=== PATIENT | male | born 1945 | race Caucasian/White ===

== ENCOUNTER → 2016-08-26 | Outpatient (CLI) | payer OTHER, BC ==
[~2016-08-26] MED LIST: ADULT LOW DOSE81 M1 PO; CADUET 5/201 TABLET PO; DIOVAN HCT 3201 EAC1 PO; FINASTERIDE5 M1 PO; FLOMAX0.4 MG PO; PRILOSEC20 MG PO
== END | disposition home or self-care (01) ==
DX: M17.11 Unilateral primary osteoarthritis, right knee (principal)
CPT/HCPCS: 97110 GP; 97150 GO; 97161 GP; 97165 GO; G8978 GP; G8979 GP; G8980 GP; G8987 GO; G8988 GO; G8989 GO

== ENCOUNTER 2016-09-08 04:56 | Inpatient (IN) | payer OTHER, BC ==
[~2016-09-08] VITALS: Ht 170.2 cm; Wt 105.9 kg
[~2016-09-08 04:56] MED LIST changes: +DIOVAN HCT 11 TABLET PO; +GLUCOPHAGE500 MG PO; +MOBIC15 MG PO; +NORVASC5 MG PO
[2016-09-08 07:55] LABS: POINT-OF-CARE METER ID UU14174212
[2016-09-08 08:27] VITALS: BP 165/77
[2016-09-08 12:53] LABS: POINT-OF-CARE METER ID UU13113675; POINT-OF-CARE USER ID 515036437
[2016-09-08 14:20] VITALS: BP 148/88
[2016-09-08 14:37] LABS: INTER. NORMALIZED RATIO 1.1; PROTHROMBIN TIME 10.7 (9.2-11.2)
[2016-09-08 17:07] LABS: POINT-OF-CARE METER ID UU13113712; POINT-OF-CARE USER ID 606021404
[2016-09-08 19:29] VITALS: BP 144/69
[2016-09-08 20:33] VITALS: BP 107/58
[2016-09-08 21:02] VITALS: BP 117/70
[2016-09-08 21:13] LABS: POINT-OF-CARE METER ID UU13113712
[2016-09-09] VITALS (7 sets, daily range): BP systolic 133–172; BP diastolic 63–80
[2016-09-09 06:47] LABS: HEMATOCRIT 32.9 % (38.0-50.0); MCV 91.1 FL (86-99)
[2016-09-09 06:55] LABS: INTER. NORMALIZED RATIO 1.1; PROTHROMBIN TIME 10.7 (9.2-11.2)
[2016-09-09 07:14] LABS: ANION GAP 6 MEQ/L (2-14); CHLORIDE 98 MEQ/L (99-109); GFR ESTIMATE (CALCULATED) > 59 mL/min/; GLUCOSE 135 mg/dL (70-99); SAMPLE HEMOLYSIS CHECK 0; SAMPLE ICTERIC CHECK 0; SAMPLE LIPEMIA CHECK 0; SODIUM 135 MEQ/L (136-147); UREA NITROGEN (BUN) 12 mg/dL (9-23)
[2016-09-09] MEDS ORDERED: COUMADIN2.5 MG PO (07:58)
[2016-09-09] MEDS ORDERED: VISTARIL25 MG PO (07:58)
[2016-09-09] MEDS ORDERED: [UNRECOGNIZED DRUG - REMARK] (07:58)
[2016-09-09] MEDS ORDERED: PERCOCET 5/31 TABLET PO (07:58)
[2016-09-09 11:17] LABS: POINT-OF-CARE METER ID UU13113712
[2016-09-09 17:00] LABS: POINT-OF-CARE METER ID UU13113712
[2016-09-10 04:05] VITALS: BP 139/65
[2016-09-10 05:02] LABS: INTER. NORMALIZED RATIO 1.5; PROTHROMBIN TIME 15.3 (9.2-11.2)
[2016-09-10 05:04] LABS: HEMATOCRIT 40.1 % (38.0-50.0); MCV 90.7 FL (86-99)
[2016-09-10 07:27] LABS: POINT-OF-CARE METER ID UU13113712
[2016-09-10 08:38] VITALS: BP 131/61
[2016-09-10 11:12] LABS: POINT-OF-CARE METER ID UU13113712
[2016-09-10 12:00] VITALS: BP 113/53
[2016-09-10 20:19] VITALS: BP 131/58
[2016-09-11 00:11] VITALS: BP 121/56
[2016-09-11 04:21] VITALS: BP 105/57
[2016-09-11 05:19] LABS: INTER. NORMALIZED RATIO 1.2; PROTHROMBIN TIME 12.7 (9.2-11.2)
[2016-09-11 08:00] VITALS: BP 134/64
[2016-09-11 08:02] LABS: POINT-OF-CARE METER ID UU13113712
== END 2016-09-11 09:52 | DRG 470 ==
LOC: 2SOUTH 04:56 → 3WEST 14:05
PROVIDERS: Orthopaedic Surgery
PROC: 0SRC0J9 Replacement of Right Knee Joint with Synthetic Substitute, Cemented, Open Approach (ICD-10-PCS; principal; 2016-09-08)
DX: M17.11 Unilateral primary osteoarthritis, right knee (principal); E11.9 Type 2 diabetes mellitus without complications; E78.5 Hyperlipidemia, unspecified; I10 Essential (primary) hypertension; K21.9 Gastro-esophageal reflux disease without esophagitis; Z87.891 Personal history of nicotine dependence
CPT/HCPCS: 80048; 82948; 85014; 85018; 85610; 94799; C1713; J0690; J1170; J1815; J1885; J2250; J2405; J3010; J3480; J7050

== ENCOUNTER 2016-09-24 10:27 | Emergency (ER) | payer OTHER, BC ==
[~2016-09-24] VITALS: Ht 170.2 cm; Wt 109.0 kg
[~2016-09-24 10:27] MED LIST changes: +COUMADIN2.5 MG PO; +PERCOCET 5/31 TABLET PO; +VISTARIL25 MG PO; +[UNRECOGNIZED DRUG - REMARK]
[2016-09-24 10:56] LABS: HEMATOCRIT 32.7 % (38.0-50.0); MCHC 33.9 G/DL (30.0-36.0); MCV 88.4 FL (86-99); MEAN PLAT.VOLUME 8.6 uM^3 (9.0-12.4); PLATELET COUNT 765 K/uL (156-360); RBC DIS.WIDTH-CV 13.4 % (11.8-14.6); RBC DIS.WIDTH-SD 41.3 % (39-53); WHITE BLOOD COUNT 12.7 K/uL (4.1-10.2)
[2016-09-24 11:07] LABS: CHLORIDE 99 mEq/L (99-109); SODIUM 140 mEq/L (136-147)
[2016-09-24 11:09] LABS: GLUCOSE 149 mg/dL (70-99)
[2016-09-24 11:10] LABS: ANION GAP 20 MEQ/L (2-14)
[2016-09-24 11:12] LABS: GFR ESTIMATE (CALCULATED) > 59 mL/min/
[2016-09-24 11:13] LABS: UREA NITROGEN (BUN) 22 mg/dL (9-23)
[2016-09-24 12:32] LABS: TROP-I INTERPRETATION NEGATIVE; TROPONIN-I < 0.01 ng/mL (0.0-0.30)
[2016-09-24 12:36] LABS: INTER. NORMALIZED RATIO 2.6; PROTHROMBIN TIME 27.4 (9.2-11.2); PTT 39.3 (25-32)
[2016-09-24 12:43] LABS: D-DIMER ELISA > 4.00 mg/L FEU (< 0.57)
[2016-09-24 14:41] LABS: TROP-I INTERPRETATION NEGATIVE; TROPONIN-I < 0.01 ng/mL (0.0-0.30)
[2016-09-24 17:22] VITALS: BP 143/59
== END 2016-09-24 17:36 | disposition home or self-care (01) ==
LOC: EME 10:27
PROVIDERS: Emergency Medicine
DX: R06.02 Shortness of breath (principal); M25.561 Pain in right knee; Z96.651 Presence of right artificial knee joint; I10 Essential (primary) hypertension; Z87.442 Personal history of urinary calculi; Z87.891 Personal history of nicotine dependence
CPT/HCPCS: 71020; 71275; 80048; 84484; 85027; 85379; 85610; 85730; 93005; 93971; 99281; 99285; J3010; J7030